=== PATIENT | male | born 1985 | race Caucasian/White ===

== ENCOUNTER 2016-04-23 17:09 | Emergency (ER) | payer SELFPAY ==
[2016-04-23] MEDS ORDERED: IOPAMIDOL 300 (61%) 150 ML VIAL IV ONE (17:10)
[2016-04-23 18:11] LABS: URINE BILIRUBIN NEGATIVE (NEGATIVE); URINE BLOOD NEGATIVE (NEGATIVE); URINE GLUCOSE (UA) NEGATIVE (NEGATIVE); URINE LEUKOCYTE ESTERASE NEGATIVE (NEGATIVE); URINE NITRITE NEGATIVE (NEGATIVE); URINE PROTEIN NEGATIVE (NEGATIVE); URINE UROBILINOGEN NORMAL (0-1 mg/dl)
[2016-04-23] MEDS ORDERED: SODIUM CHLORIDE 0.9% 1,000 ML ONE (18:12)
[2016-04-23] MEDS ORDERED: MORPHINE SULFATE 4 MG/ML SYRINGE ONE (18:12)
[2016-04-23] MEDS ORDERED: ONDANSETRON 4 MG/2ML 2 ML VIAL ONE (18:12)
[2016-04-23 18:19] LABS: URINE APPEARANCE CLEAR; URINE COLOR YELLOW
[2016-04-23 18:20] LABS: ABSOLUTE NEUTROPHIL COUNT 8.9 K/mm3 (1.8-7.7); BASO # 0.1 K/mm3 (0.0-0.2); BASO % 0.6 % (0.2-1.0); EOS # 0.2 (0.0-0.5); EOS % 1.3 % (0.9-2.9); HEMATOCRIT 46.9 % (32.0-52.0); HEMOGLOBIN 15.9 gm/l (14.0-18.0); IMM NEUT% 0.2 % (0-1); LYMPH # 3.3 (1.0-4.8); LYMPH % 24.8 % (15-45); MEAN CELL VOLUME 86.1 fl (80.0-94.0); MEAN CORPUSCULAR HEMOGLOBIN 29.2 pg (27.0-31.0); MEAN CORPUSCULAR HGB CONC 33.9 g/dl (33.0-37.0); MEAN PLATELET VOLUME 9.5 fl (7.4-10.4); MONO # 0.8 (0.0-0.8); MONO % 6.3 % (4-12); NEUT % 66.8 % (43-75); PLATELET COUNT 372 K/mm3 (130-400); RED CELL DISTRIBUTION WIDTH 12.3 % (11.5-14.5)
[2016-04-23 18:31] LABS: ALB/GLOB RATIO 1.2 (>1.0); ALBUMIN 4.2 gm/dL (3.5-5.7); CALCIUM 10.6 mg/dL (8.6-10.3)
--- NOTE | 2016-04-23 19:05 | CT ---
Exam: CT abdomen and pelvis with contrast COMPARISON: None INDICATION: Right lower quadrant pain. TECHNIQUE: CT examination of the abdomen and pelvis was obtained following the administration 125 mL Isovue-370 intravenous contrast. FINDINGS: A few scattered colonic diverticula are seen within the descending colon, without evidence of diverticulitis. The bowel, including the appendix, is otherwise unremarkable and there is no bowel obstruction, free air or free intraperitoneal fluid. There is no pelvic lymphadenopathy or fluid collection. Urinary bladder unremarkable. Hepatic steatosis. The pancreas, spleen, kidneys, adrenal glands and gallbladder are unremarkable. Tiny fat-containing periumbilical hernia is noted, and diastases rectus is appreciated. Aside from some minor dependent atelectasis, lung bases are clear. No worrisome lytic or blastic osseous lesion is identified. Mild degenerative disc disease is seen at the lumbosacral junction where there is trace retrolisthesis. IMPRESSION: No evidence of acute appendicitis, or other acute findings identified to explain right lower quadrant pain. A few incidental findings as above. Report was uploaded to the EMR at 1902 hours 04/23/2016.
[2016-04-23] MEDS ORDERED: KETOROLAC TROMETHAMINE 30 MG/ML 1 ML VIAL ONE (19:15)
== END 2016-04-23 21:00 | disposition home or self-care (01) ==
LOC: ED 17:09
DX: R10.11 Right upper quadrant pain (principal)
CPT/HCPCS: 85025; 80053; 81003; 74177; 96375 ×2; 99284 ×2; 96374; J2270; J1885; J2405; J7030; Q9967